=== PATIENT | female | born 1975 | race Caucasian/White ===

== ENCOUNTER 2023-05-28 05:45 | Day surgery (SDC) | payer OTHER ==
[2023-05-22 16:28] VITALS: BP 145/101
[~2023-05-28] VITALS: Ht 160 cm; Wt 156.8 kg
[~2023-05-28 05:45] MED LIST: CLARITIN10 MG PO; DILAUDID4 MG PO; FLONASE ALLERG9.9 ML NAS; LOSARTAN POTAS100 MG PO; MIRALAX17 GM PO; OXYCODONE HCL5 MG PO; TRAMADOL HCL100 M2 PO; VITAMIN C1000 MG PO; VITAMIN D5000 UNIT PO; XANAX XR0.5 MG PO; XARELTO10 MG PO
[2023-05-28 05:55] VITALS: BP 131/67
--- NOTE | 2023-05-28 07:20 | NUR ---
EXERCISED MINISTRY OF PRESENCE PT TALKED OF HEALTH JOURNEY. PT CONSENTED TO PRAYER. PRAYED FOR SUCCESSFUL PROCEDURE AND COMPLETE RECOVERY.
--- NOTE | 2023-05-28 07:57 | NUR ---
05/28/23 0757 Giana Shirley 0752-PATIENT ARRIVED TO PACU ON RA RR EVEN. PATIENT AWAKE DROWSY DENIES PAIN OR NAUSEA LAYING LEFT LATERAL ABDOMEN SOFT. IVF INFUSING. SR. PASSING GAS
[2023-05-28 08:14] VITALS: BP 138/74
--- NOTE | 2023-05-28 09:23 | OR ---
[facility] [address], [place] [address] Signed DATE OF OPERATION: 05/28/2023 SURGEON: Jer Denton MD PREOPERATIVE DIAGNOSES: 1. Paternal grandfather with colon cancer. 2. Irritable bowel syndrome with constipation, diarrhea. 3. Gastric bypass associated anemia with a hemoglobin 11.4 and mean cell volume 75. POSTOPERATIVE DIAGNOSES: 1. Minimal sigmoid diverticulosis. 2. Single internal anal skin tags. PROCEDURE: Colonoscopy without biopsy. ESTIMATED BLOOD LOSS: None. INDICATIONS: Nohemi is a 47-year-old obese female with a body mass index of 58. She went to gastric bypass at [facility] in [place], [place] in 2010. Prior to the gastric bypass, she underwent both upper and lower endoscopy in 2010 at [facility]. She told me that was unremarkable. She is coming back now at age 47 for her screening colonoscopy. She told me her paternal grandfather had colon cancer. She describes irritable bowel syndrome with alternating constipation, diarrhea. Also, she has told me she has been a long-time anemic from the gastric bypass. She tells me she has multivitamin and iron tablets at home. In the office I had given her a pamphlet on colonoscopy. We had reviewed that together. She understands the nature of the test. There is risk including, but not limited to gas bloating, crampy abdominal pain, bleeding, perforation requiring surgery, and missed diagnosis. We also discussed the need for monitored anesthesia care given her body mass index along with her other issues including chronic pain and anxiety. In that regard, she required preoperative blood work and an EKG. We can see that her hemoglobin is 11.4 with a mean cell volume of 75. She understands an adult person has to take her home afterwards. She had expressed understanding and wished to proceed. PROCEDURE IN DETAIL: Nohemi was taken into our endoscopy suite and placed in the left lateral decubitus position. 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 A digital rectal exam was performed and she had no external hemorrhoids. She had good sphincter tone. I could feel a single internal anal skin tag somewhat pedunculated. It is probably 15 mm in length x 3 or 4 mm wide. She has good sphincter tone. There were no masses otherwise. The adult colonoscope was introduced and advanced all the way around into the cecum under direct visualization of camera without difficulty. Her prep was quite good. We could easily see the appendiceal orifice and the ileocecal valve. The scope was then slowly withdrawn. We took several pictures throughout for photodocumentation. We saw just a few diverticula in the sigmoid colon. They were small to moderate sized just few in number and scattered about. The rectum was unremarkable. Upon retroflexion of scope we could see that long pedunculated internal anal skin tag. Really not much in the way of internal hemorrhoid columns. After this, the gas was suctioned out, colonoscope removed. Nohemi tolerated the procedure quite well. RECOMMENDATIONS: Nohemi can come back in 5 years for repeat colonoscopy due to her paternal grandfather having colon cancer. She is encouraged to take her multivitamins, iron and vitamin C because of her gastric bypass. Due to her body mass index and her chronic pain she will always need monitored anesthesia care with propofol infusion. Jer Denton MD ALB/MODL /[id number] cc: LAYTON Harley MD Copies: CORINNE ZHENG ANDREW L MD ~ Electronically Signed By: JER DENTON MD 05/28/23 0923 PATIENT NAME: ORA SEXTON OPERATIVE REPORT DATE OF : 77 REPORT #: [id number] PHYSICIAN: JER DENTON MD PCP: CORINNE ZHENG REPORT IS CONFIDENTIAL AND NOT TO BE RELEASED WITHOUT AUTHORIZATION
== END 2023-05-28 08:25 | disposition home or self-care (01) ==
LOC: OPS 05:45 → DS 05:45 → OPS 07:30 → DS 07:30 → OPS 08:25 → DS 09:00
PROVIDERS: ATTEND Colon & Rectal Surgery
PROC: 0DJD8ZZ Inspection of Lower Intestinal Tract, Via Natural or Artificial Opening Endoscopic (ICD-10-PCS; principal; 2023-05-28 07:30)
DX: Z12.11 Encounter for screening for malignant neoplasm of colon (principal); E66.9 Obesity, unspecified; K57.30 Diverticulosis of large intestine without perforation or abscess without bleeding; K64.4 Residual hemorrhoidal skin tags; K58.9 Irritable bowel syndrome, unspecified; I10 Essential (primary) hypertension; M19.90 Unspecified osteoarthritis, unspecified site; Z68.43 Body mass index [BMI] 50.0-59.9, adult; Z98.84 Bariatric surgery status; Z80.0 Family history of malignant neoplasm of digestive organs
CPT/HCPCS: 00811; J0690; J2001; J2704; J7121